=== PATIENT | female | born 1960 | race Caucasian/White ===

== ENCOUNTER 2017-12-31 11:21 | Inpatient (IN) | payer BC, OTHER ==
--- NOTE | 2017-12-29 22:48 | NUR ---
Usman reassess Patient verbalized relief from heartburn. Addendum: 01/01/18 at 0002 by VERÓNICA MAHARAJ RN Actual date should be: 12/31/17
[~2017-12-31] VITALS: Ht 163.8 cm; Wt 80.7 kg
--- NOTE | 2017-12-31 11:50 | NUR ---
Pre-Assessment Patient is a 57 yr old female who has presented to [facility] today for a medically supervised withdrawal from Benzodiazepines ( Lorazepam) She states she takes 3-4 mg PO Lorazepam as prescribed ( But family friend states you probably want to double what she says )for the past 6 years. She also takes, according to family friend vast quantities of Nyquil, Benadryl and OTC sleep aids She states she would like to wean off Effexor XR which she takes 150mg PO + 37.5mg -( Minus) 35 grains She also wants to wean off Lamictal 25mg PO 4x day She also takes Trazodone 25mg PO HS Claritin 10mg PO daily Zantac 150mg PO daily Levothyroxine 100mcg/dy Estradiol patch / 1 patch twice/week Progesterone 100mg PO HS Valsartan 80mg PO daily VS = BP 125/77, HR 98, RR 18, O2 SATS 94%, 0/10 pain. She is full code, allergy to Levoquin, regular diet Home medications brought to unit, contraband sent to Pharmacy per protocol Will continue assessment when patient arrives on floor. Room 329
[2017-12-31] MEDS ORDERED: ESTR1PAT7 TP (13:12)
[2017-12-31] MEDS ORDERED: IBUP-1627 PO (13:13)
[2017-12-31] MEDS ORDERED: ASPI1TAB2 PO (13:14)
[2017-12-31] MEDS ORDERED: VALS160T2 PO (13:15)
[2017-12-31] MEDS ORDERED: VENL37.591 PO (13:15)
[2017-12-31] MEDS ORDERED: TRAZ-182 PO (13:16)
[2017-12-31] MEDS ORDERED: LEVO100T10 PO (13:19)
[2017-12-31] MEDS ORDERED: DIPH25CA83 PO (13:20)
[2017-12-31] MEDS ORDERED: PROG100C15 PO (13:22)
[2017-12-31] MEDS ORDERED: DEXT15DR6 OP (13:24)
[2017-12-31] MEDS ORDERED: LAMO25TA PO (13:27)
[2017-12-31] MEDS ORDERED: [UNRECOGNIZED DRUG - OTHER] EACHEYE PRN (14:15)
[2017-12-31] MEDS ORDERED: ARTIFICIAL TEARS EACHEYE PRN (14:15)
[2017-12-31] MEDS ORDERED: MAGNESIUM HYDROXIDE 30 ML LIQUID UDC PO PRN (14:45)
[2017-12-31] MEDS ORDERED: DIAZEPAM 10 MG TABLET PO PRN ×2 (14:45)
[2017-12-31] MEDS ORDERED: LOPERAMIDE HCL 2 MG CAPSULE PO PRN ×2 (14:45)
[2017-12-31] MEDS ORDERED: ONDANSETRON ODT 4 MG TAB.RAPDIS SL PRN (14:45)
[2017-12-31] MEDS ORDERED: ONDANSETRON 4 MG/2 ML VIAL IM PRN (14:45)
[2017-12-31] MEDS ORDERED: ACETAMINOPHEN 325 MG TABLET PO PRN (14:45)
[2017-12-31] MEDS ORDERED: LORAZEPAM 2 MG/1 ML VIAL IM PRN (14:45)
[2017-12-31] MEDS ORDERED: THIAMINE HCL 200 MG/2 ML VIAL IM ONE (14:45)
[2017-12-31] MEDS ORDERED: diphenhydrAMINE 50 MG CAPSULE PO PRN (14:45)
[2017-12-31] MEDS ORDERED: MAG HYDROX/AL HYDROX/SIMETH 30 ML LIQUID UDC PO PRN (14:45)
[2017-12-31] MEDS ORDERED: DIAZEPAM 5 MG TABLET PO PRN (14:45)
[2017-12-31] MEDS ORDERED: 5 DAY TAPER VALIUM-SERENITY PROTOCOL PO PRN (14:45)
[2017-12-31 15:22] LABS: *AMPHETAMINE, URINE NEGATIVE (NEGATIVE); *BARBITURATE, URINE NEGATIVE (NEGATIVE); *CANNABINOID, URINE NEGATIVE (NEGATIVE); *COCCAINE, URINE NEGATIVE (NEGATIVE); *OPIATE, URINE NEGATIVE (NEGATIVE); *PHENCYCLIDINE SCREEN,URINE NEGATIVE (NEGATIVE)
[2017-12-31 16:00] VITALS: BP 128/74
[2017-12-31 16:01] LABS: BASOPHILS # (AUTO) 0.1 K/uL (0.0-8.0); BASOPHILS % (AUTO) 0.9 % (0.0-2.0); EOSINOPHILS # (AUTO) 0.3 K/uL (0.0-0.7); EOSINOPHILS % (AUTO) 3.9 % (0.0-7.0); HEMATOCRIT 43.2 % (31.2-41.9); HEMOGLOBIN 14.8 g/dL (10.9-14.3); LYMPHOCYTES # (AUTO) 2.3 K/uL (20.0-40.0); LYMPHOCYTES % (AUTO) 28.9 % (20.5-51.5); MEAN CORPUSCULAR HEMOGLOBIN 32.3 uug (24.7-32.8); MEAN CORPUSCULAR HGB CONC 34 g/dL (32.3-35.6); MEAN CORPUSCULAR VOLUME 94.3 fL (75.5-95.3); MONOCYTES # (AUTO) 0.6 K/uL (2.0-10.0); MONOCYTES % (AUTO) 7.7 % (0.0-11.0); NEUTROPHILS # (AUTO) 4.7 K/uL (1.8-8.9); NEUTROPHILS % (AUTO) 58.6 % (38.5-71.5); PLATELET COUNT (AUTO) 252 K/uL (179-408); RED BLOOD CELL COUNT(AUTO) 4.58 MIL/uL (3.63-4.92); WHITE BLOOD COUNT (AUTO) 8.1 K/uL (3.8-11.8)
[2017-12-31 16:16] LABS: ALANINE AMINOTRANSFERASE 24 U/L (14-59); ALKALINE PHOSPHATASE 73 U/L (50-136); ASPARTATE AMINOTRANSFERASE 15 U/L (15-37); BILIRUBIN,TOTAL 0.2 mg/dL (0.2-1.0); CARBON DIOXIDE 29 mmol/L (21-32); CHLORIDE 101 mmol/L (98-107); CREATININE 0.8 mg/dL (0.6-1.3); GLUCOSE 91 mg/dL (74-106); MAGNESIUM 1.9 mg/dL (1.8-2.4); POTASSIUM 4.3 mmol/L (3.5-5.1); TOTAL PROTEIN, SERUM 6.7 g/dL (6.4-8.2); UREA NITROGEN, BLOOD 21 mg/dL (7-18)
[2017-12-31 16:17] LABS: ETHANOL < 3 MG/DL (0-0)
[2017-12-31 16:52] LABS: THYROID STIMULATING HORMONE 1.077 mIU/mL (0.358-3.740)
[2017-12-31] MEDS ORDERED: TRAZODONE 50 MG TABLET PO SCH ×2 (18:00→21:00)
[2017-12-31] MEDS: HYDROXYZINE PAMOATE 25 MG CAPSULE PO PRN (18:05)
[2017-12-31] MEDS: CLONIDINE HCL 0.1 MG TABLET PO PRN (18:08)
--- NOTE | 2017-12-31 18:08 | NUR ---
PRN Vistaril 50mg PO and Clonidine 0.1mg PO given for s/s withdrawal and agitation
[2017-12-31] MEDS: PSYLLIUM SEED PACKET PO SCH ×2 (18:09→18:16)
[2017-12-31] MEDS ORDERED: HOME MED MISCELLANEOUS OP PRN (18:15)
[2017-12-31] MEDS ORDERED: HOME MED MISCELLANEOUS TP SCH (18:15)
[2017-12-31] MEDS ORDERED: HOME MED MISCELLANEOUS TP PRN ×2 (18:15)
[2017-12-31] MEDS ORDERED: HOME MED MISCELLANEOUS RC SCH (18:15)
[2017-12-31] MEDS ORDERED: diphenhydrAMINE/ZINC ACET CREAM 28 GM TUBE TOP PRN (18:15)
[2017-12-31] MEDS ORDERED: SHARK LIVER OIL/PETROLAT OINT 60 GM TUBE RC PRN (18:15)
[2017-12-31] MEDS ORDERED: NICO2GUM9 BC (18:57)
[2017-12-31] MEDS ORDERED: [UNRECOGNIZED DRUG - CODE] MM (18:57)
[2017-12-31] MEDS ORDERED: CALC500T13 PO (18:57)
[2017-12-31] MEDS ORDERED: RANI150T43 PO (18:57)
[2017-12-31] MEDS ORDERED: IBUP-23 PO (18:57)
--- NOTE | 2017-12-31 19:08 | NUR ---
PRN Reassess patient states medications have helped ease her anxiety
--- NOTE | 2017-12-31 19:09 | NUR ---
Admission Note Patient is a 57 yr old female who was admitted today 12/31/17 @ 1323 for a medically supervised withdrawal from Benzodiazepines. She is alert and oriented x4, steady gait and is accompanied by her friend. Patient is able to answer all questions appropriately regarding past medical history. Substance Abuse History: Lorazepam 4-8mg PO daily for past 6 years, last consumed 3mg PO @ 0930 12/31/17 Patient states she first took Lorazepam in 1990 for about 1 year and stopped and then did not start to take it again until about 6 years ago ( approx 2011). Medical History: Chronic Anxiety- PTSD - diagnosed 2011 ( was prescribed Lorazepam) Depression diagnosed in was prescribed Effexor in 1998 Lamictal 100mg PO daily for bipolar 2 disorder Hypothyroid- was prescribed Synthroid in 1997 Insomnia- was prescribed Trazodone in 2014 Menopuase was prescribed Estradiol and progesterone 7 months ago HTN- Valsartan was prescribed in 2015 Surgical History: Gestational Trophoblastic Disease invasive chorio adenoma Partial Colonectomy in 2014 Hernia 2015 Shattered shoulder and broken arm in [address] Horacio Masters : [phone] Allen Squires : [phone] Sumi Gregorio : [phone] When asked why she has come to [facility] today she replies I have had so many shocks this year, My Mother is not well, my is cheating on me and has destroyed our 30 year marriage, my son is upset and does not know how to deal with all this turmoil , my anxiety medication has stopped working for me and I dont want to keep taking morenothing is working, I have panic attacks, my teeth chatter and I have racing thoughts all the time, I am up and down emotionally and I need help now. Patient states she lives with her son and nephew , her friends Madelin and Yury who brought her here today are her support system. Per friends report she gets very paranoid and can be very domineering and has volatile mood swings. Weight is 178 lbs, height 54.5, no SOB, Lung sounds clear bilaterally, Positive Bowel sounds, Full Code
[2017-12-31] MEDS ORDERED: [UNRECOGNIZED DRUG - OTHER] RC PRN (19:15)
[2017-12-31] MEDS ORDERED: DESITIN OINTMENT TOP PRN (19:30)
[2017-12-31] MEDS ORDERED: CORTIZONE TOP PRN (19:30)
[2017-12-31] MEDS ORDERED: [UNRECOGNIZED DRUG - OTHER] EACHEYE PRN (19:30)
[2017-12-31] MEDS ORDERED: TIGER BALM TOP PRN (19:30)
--- NOTE | 2017-12-31 19:39 | NUR ---
End Of Shift Patient is a 57 yr old female who was admitted to [facility] 12/31/17 for a medically supervised withdrawal from Benzodiazepines. She has started on a 5 day Valium taper. patient has been emotionally volatile since admission on the floor this afternoon. PRN Valium 20mg PO, Clonidine and Vistaril 50mg Po were given. She had a fluid intake of 1300ML and 5 voids, her last CIWA was 17 @ 1730. Continue to follow MD plan of care, endorsed to power and recovery shift engineer.
[2017-12-31 20:00] VITALS: BP 123/83
--- NOTE | 2017-12-31 20:00 | NUR ---
START OF SHIFT Received patient awake, alert, and oriented x4. Per endorsement, patient is admitted today 12/31/2017 for Ativan detox. She has a Levaquin allergy. It is noted that patient is emotionally labile with manic and depressive episodes and switching between hostile and apologetic moods. Upon assessment, patient was cordial, anxious, and exhibited low energy levels. No complaints of pain at this time. CIWA is 13 at 2000. Will continue to monitor.
[2017-12-31] MEDS: QUETIAPINE FUMARATE 25 MG TABLET PO SCH (20:54)
[2017-12-31] MEDS ORDERED: DIAZEPAM 10 MG TABLET PO SCH (21:00)
[2017-12-31] MEDS: PROGESTERONE 100 MG PO SCH (21:06)
[2017-12-31] MEDS: [UNRECOGNIZED DRUG - OTHER] PO SCH (21:06)
[2017-12-31] MEDS: FAMOTIDINE 20 MG TABLET PO PRN (21:47)
--- NOTE | 2017-12-31 21:47 | NUR ---
PRN Pepcid Patient c/o heartburn. Administered Pepcid 20 mg PO. Will reassess.
--- NOTE | 2017-12-31 22:47 | NUR ---
Pepcid reassess Patient verbalized relief from heartburn.
[2018-01-01] VITALS: BP 99/55
--- NOTE | 2018-01-01 | NUR ---
CIWA=11 Patient continues to be anxious but appears less tense. Patient noted with tremors and is depressed and isolative.
[2018-01-01 04:00] VITALS: BP 102/60
--- NOTE | 2018-01-01 04:00 | NUR ---
CIWA=10 Patient continues to be restless and fidgety and appears less anxious. Patient is noted being tremulous and withdrawn. Will continue to monitor.
[2018-01-01] MEDS: LEVOTHYROXINE SODIUM 100 MCG TABLET PO SCH (06:13)
--- NOTE | 2018-01-01 07:14 | NUR ---
END OF SHIFT Patient is noted lying in bed with eyes closed and with even and unlabored respirations. Patient reported some agitation and restlessness. Last CIWA score is 10. Patient slept for 7 hours during the shift. Patient verbalized that she was able to get good sleep last night and was grateful for the care we were able to render for her. Endorsed to oncoming AM nurse.
[2018-01-01 08:00] VITALS: BP 126/80
--- NOTE | 2018-01-01 08:00 | NUR ---
Start of Shift Notes/CIWA Assessment: Received report from night nurse. Patient is a 57 year old female admitted for BZO withdrawal who was placed on a 5-day Valium taper as ordered. Per night report, patient was not given any PRNs. Last CIWA 10. Slept for 8 hours. Received patient in the hallway. She is noted with arms crossed. Appears flushed, worried facial expression, anxious and agitated. She verbalizes that she wants Valium now. Educated patient on her medication regimen and the time it is supposed to be given. CIWA 15. Gross tremors noted to BUE and diaphoretic. Denies S/I or H/I noted. No AV hallucinations noted. Educated patient on her current plan of care for the day. Encouraged group participation to learn new skills to prevent relapse. All needs met and attended. Will continue to monitor closely.
[2018-01-01] MEDS: VALSARTAN 160 MG TABLET PO SCH (08:42)
[2018-01-01] MEDS: DIAZEPAM 10 MG TABLET PO SCH ×3 (08:42→21:32)
[2018-01-01] MEDS: MULTIVITAMINS,THERAPEUTIC TABLET PO SCH (08:42)
[2018-01-01] MEDS: VENLAFAXINE XR 150 MG CAP.SR.24H PO SCH (08:42)
[2018-01-01] MEDS: FOLIC ACID 1 MG TABLET PO SCH (08:42)
[2018-01-01] MEDS: THIAMINE HCL 100 MG TABLET PO SCH (08:42)
[2018-01-01] MEDS: LAMOTRIGINE 25 MG TABLET PO SCH (08:42)
[2018-01-01] MEDS ORDERED: PSYLLIUM SEED PACKET PO SCH (09:00)
[2018-01-01] MEDS ORDERED: ESTRADIOL TOP SCH (09:00)
[2018-01-01] MEDS ORDERED: TUBERCULIN,PURIF.PROT.DERIV. 5 TU/0.1 ML TEST ID ONE (09:00)
[2018-01-01] MEDS ORDERED: [UNRECOGNIZED DRUG - OTHER] TOP SCH (09:00)
[2018-01-01] MEDS ORDERED: CALCIUM CARBONATE 500 MG TAB.CHEW PO PRN (10:30)
[2018-01-01 12:00] VITALS: BP 126/69
--- NOTE | 2018-01-01 12:30 | NUR ---
CIWA Assessment: CIWA 14, patient continues to present with facial flushing, gross tremors, nervousness, abdominal spasms, vivid dreams, increased emotional amplitude and agitation. Will medicate patient as ordered. Support provided.
[2018-01-01] MEDS: DICYCLOMINE HCL 10 MG CAPSULE PO PRN ×2 (14:40→22:05)
--- NOTE | 2018-01-01 14:40 | NUR ---
Bentyl 10 mg PO given: Patient noted with complain of abdominal cramping. No diarrhea. No constipation noted. Medicated patient with Bentyl 10 mg PO as ordered. WIll monitor for effectiveness.
[2018-01-01 16:00] VITALS: BP 122/80
--- NOTE | 2018-01-01 16:19 | NUR ---
CIWA Assessment: CIWA 14, patient continues to present with s/s of withdrawal related to BZO m/b: facial flushing, gross tremors, nervousness, abdominal spasms, vivid dreams, increased emotional amplitude, generalized discomfort, fatigue, malaise and agitation. Will medicate patient as ordered. Support provided.
--- NOTE | 2018-01-01 19:02 | NUR ---
End of Shift Notes: Patient continues to be on 5-day Valium as ordered to manage symptoms related to BZO withdrawal. VS monitored closely. No significant abnormalities noted. Withdrawal symptoms were closely monitored. Initial CIWA 15, patient presented with anxiety, agitation, vivid dreams, abdominal cramping, increased emotional amplitude, gross tremors, diaphoresis, facial flushing, hot and cold sweats and generalized discomfort. Medicated patient with Bentyl at 1440 for abdominal cramping with help. Last CIWA 12. Patient verbalizes that Valium has been effective in reducing her withdrawal symptoms. Participated in group and activities during the day. All needs met and attended. Will continue to monitor closely.
--- NOTE | 2018-01-01 19:13 | NUR ---
START OF SHIFT Patient is a 57-year-old female admitted on 12/31/17 for benzodiazepine withdrawal. Patient is currently on a 5-day Valium taper, tolerating well; today is day 2 of taper. Patients last CIWA was 12 per endorsement. Patient received PRN Bentyl for abdominal spasms, noted to be effective. Upon assessment, patient appears anxious and preoccupied with thoughts. Patient is talkative and jumps from topic to topic. Patient complains of general discomfort related to aging stating, this is what you have to look forward to in regards to taking routine Metamucil. Patient is on fall and seizure precautions with no history of seizure. Safety measures in place, side rails up x2, bed locked in low position, call light within reach. Will continue to monitor.
[2018-01-01] MEDS: PSYLLIUM SEED PACKET PO SCH ×2 (19:45→21:00)
[2018-01-01 20:00] VITALS: BP 150/96
--- NOTE | 2018-01-01 20:00 | NUR ---
CIWA 12 Patient reports feeling anxious and restless; patient is diaphoretic and mildly flushed. Patient complains of intermittent stomach cramps and fine hand tremors can be observed bilaterally. Patient is tearful at times when expressing her thoughts and feelings regarding her current situation. Current CIWA is 12. SN to administer meds as ordered. Will continue to monitor.
[2018-01-01] MEDS: [UNRECOGNIZED DRUG - OTHER] PO SCH (21:32)
[2018-01-01] MEDS: QUETIAPINE FUMARATE 25 MG TABLET PO SCH (21:32)
[2018-01-01] MEDS: PROGESTERONE 100 MG PO SCH (21:32)
--- NOTE | 2018-01-01 22:05 | NUR ---
PRN AVERY Patient reports abdominal spasms and states, "it's weird, I didn't think that I would be getting stomachaches." PRN Avery given PO. Safety measures in place, side rails up x2, bed locked in low position, call light within reach. Will monitor for effectiveness.
--- NOTE | 2018-01-01 23:05 | NUR ---
PRN BENTYL REASSESSMENT Patient reports abdominal cramping has improved. PRN Bentyl noted to be effective. Safety measures in place, side rails up x2, bed locked in low position, call light within reach. Will continue to monitor.
[2018-01-02] VITALS: BP 118/78
--- NOTE | 2018-01-02 | NUR ---
CIWA DEFERRED CIWA deferred due to patient sleeping; to be assessed and scored while patient is awake. Respirations even and unlabored, safety measures in place, side rails up x2, bed locked in low position, call light within reach. Will continue to monitor.
--- NOTE | 2018-01-02 00:42 | NUR ---
CIWA 9 Patient is awake and requesting some Zantac for heartburn. Patient is anxious and sleepy, slightly restless, a little flushed and diaphoretic, fine tremors noted. Current CIWA is 9. SN to administer PRNs as order. Will continue to monitor.
[2018-01-02] MEDS: FAMOTIDINE 20 MG TABLET PO PRN ×2 (00:47→19:58)
--- NOTE | 2018-01-02 00:47 | NUR ---
PRN PEPCID Patient reports, "I probably ate too much candy" and states that she has acid reflux. Patient states, "I usually take Zantac every night." PRN Pepcid given PO. Safety measures in place, side rails up x2, bed locked in low position, call light within reach. Will monitor for effectiveness.
--- NOTE | 2018-01-02 01:47 | NUR ---
PRN PEPCID REASSESSMENT Patient is observed sleeping in bed with eyes closed, respirations even and unlabored. Unable to reassess PRN Pepcid at this time. Safety measures in place, side rails up x2, bed locked in low position, call light within reach. Will continue to monitor.
--- NOTE | 2018-01-02 03:30 | NUR ---
CIWA 11 Patient reports waking up due to "I was hearing something and it made me wake up." Patient is diaphoretic, anxious, a little frightened, and slightly tremulous. Current CIWA 11. Patient asked SN to stay in the room while patient used the restroom. Patient also requested a cup of ice. Safety measures in place, side rails up x2, bed locked in low position, call light within reach. Will continue to monitor.
[2018-01-02 04:00] VITALS: BP 106/64
--- NOTE | 2018-01-02 07:13 | NUR ---
END OF SHIFT Patient is a 57-year-old female admitted on 12/31/17 for benzodiazepine withdrawal. Patient is currently on a 5-day Valium taper, tolerating well; today will be the third day of the taper. Patients last CIWA was 11. Patient received PRN Bentyl for abdominal spasms and PRN Pepcid for heartburn. Patient slept for 7 hours, total intake 1,680mL, void x2, stool x0. Unable to give 0700 levothyroxine due to med unavailable in the patients cassette. Patient is on fall and seizure precautions with no history of seizure. Safety measures in place, side rails up x2, bed locked in low position, call light within reach. Will endorse to day shift.
[2018-01-02 07:46] LABS: BASOPHILS # (AUTO) 0.1 K/uL (0.0-8.0); BASOPHILS % (AUTO) 0.9 % (0.0-2.0); EOSINOPHILS # (AUTO) 0.5 K/uL (0.0-0.7); EOSINOPHILS % (AUTO) 7.8 % (0.0-7.0); HEMATOCRIT 43.5 % (31.2-41.9); HEMOGLOBIN 14.9 g/dL (10.9-14.3); LYMPHOCYTES # (AUTO) 2.4 K/uL (20.0-40.0); MEAN CORPUSCULAR HEMOGLOBIN 32.5 uug (24.7-32.8); MEAN CORPUSCULAR HGB CONC 34 g/dL (32.3-35.6); MEAN CORPUSCULAR VOLUME 94.9 fL (75.5-95.3); MONOCYTES # (AUTO) 0.6 K/uL (2.0-10.0); MONOCYTES % (AUTO) 8.1 % (0.0-11.0); NEUTROPHILS # (AUTO) 3.4 K/uL (1.8-8.9); NEUTROPHILS % (AUTO) 49.2 % (38.5-71.5); PLATELET COUNT (AUTO) 247 K/uL (179-408); RED BLOOD CELL COUNT(AUTO) 4.59 MIL/uL (3.63-4.92)
[2018-01-02 07:58] LABS: CREATININE 0.7 mg/dL (0.6-1.3); POTASSIUM 4.2 mmol/L (3.5-5.1)
[2018-01-02 08:00] VITALS: BP 144/98
--- NOTE | 2018-01-02 08:00 | NUR ---
Start of Shift Notes/CIWA Assessment: Received report from night nurse. Patient is a 57 year old female admitted for BZO withdrawal who was placed on a 5-day Valium taper as ordered. Per night report, patient was given PRN Bentyl and Pepcid. Last CIWA 11. Slept for 7 hours. Received patient in the hallway. Alert and oriented x 4. Denies S/I or H/I noted. No AV hallucinations noted. Appears flushed, worried facial expression, anxious and agitated. Repeating questions that were already answered. CIWA 15. Gross tremors noted to BUE and diaphoretic. Educated patient on her current plan of care for the day. Encouraged group participation to learn new skills to prevent relapse. All needs met and attended. Will continue to monitor closely.
[2018-01-02] MEDS: LEVOTHYROXINE SODIUM 100 MCG TABLET PO SCH (08:56)
[2018-01-02] MEDS: VALSARTAN 160 MG TABLET PO SCH (08:57)
[2018-01-02] MEDS: VENLAFAXINE XR 150 MG CAP.SR.24H PO SCH (08:57)
[2018-01-02] MEDS: THIAMINE HCL 100 MG TABLET PO SCH (08:58)
[2018-01-02] MEDS: DIAZEPAM 5 MG TABLET PO SCH ×4 (08:58→22:55)
[2018-01-02] MEDS: FOLIC ACID 1 MG TABLET PO SCH (08:58)
[2018-01-02] MEDS: MULTIVITAMINS,THERAPEUTIC TABLET PO SCH (08:58)
[2018-01-02] MEDS: LAMOTRIGINE 25 MG TABLET PO SCH (09:03)
[2018-01-02 10:11] LABS: HEPATITIS B SURFACE AG Negative (Negative)
[2018-01-02 12:00] VITALS: BP 125/88
--- NOTE | 2018-01-02 12:30 | NUR ---
CIWA Assessment: CIWA 13, patient continues to present with facial flushing, gross tremors, nervousness, headache, abdominal spasms, diaphoresis, increased emotional amplitude and agitation. Will medicate patient as ordered. Support provided.
[2018-01-02] MEDS: IBUPROFEN 600 MG TABLET PO PRN (14:01)
--- NOTE | 2018-01-02 14:01 | NUR ---
Motrin 600 mg PO given: Patient complains of 6/10 headache related to BZO withdrawal. Non-pharmacological interventions provided but ineffective. Medicated patient with Motrin 600 mg PO as ordered. Will monitor for effectiveness.
--- NOTE | 2018-01-02 14:16 | NUR ---
Therapist prompted client to attend group therapy sessions and client agreed to do so.
--- NOTE | 2018-01-02 15:01 | NUR ---
Re-assessment: Motrin Patient verbalizes relief from headache and reports pain level is now a 2 out of 10. PRN Motrin effective.
[2018-01-02 16:00] VITALS: BP 128/75
--- NOTE | 2018-01-02 16:30 | NUR ---
CIWA Assessment: CIWA 13, patient continues to present with facial flushing, gross tremors, nervousness, headache, diaphoresis, increased emotional amplitude and agitation. Will medicate patient as ordered. Support provided.
--- NOTE | 2018-01-02 19:08 | NUR ---
End of Shift Notes: Patient continues to be on 5-day Valium as ordered to manage symptoms related to BZO withdrawal. VS monitored closely. No significant abnormalities noted. Withdrawal symptoms were closely monitored. Initial CIWA 15, patient presented with anxiety, agitation, vivid dreams, abdominal cramping, increased emotional amplitude, gross tremors, diaphoresis, facial flushing, hot and cold sweats and generalized discomfort. Medicated patient with Motrin 600 mg PO at 1401 with help. . Last CIWA 13. Patient verbalizes that Valium has been effective in reducing her withdrawal symptoms. Participated in group and activities during the day. All needs met and attended. Will continue to monitor closely.
--- NOTE | 2018-01-02 19:40 | NUR ---
START OF SHIFT Patient is a 57-year-old female admitted on 12/31/17 for benzodiazepine withdrawal. Patient is currently on a 5-day Valium taper, tolerating well; today is day 3 of the taper. Patients last CIWA was 13 per endorsement. Patient received PRN Motrin for headache today, noted to be effective. Upon assessment, patient appears anxious and tearful, stating that hearing other peoples stories during group had made her emotional. Patient reports feeling bloated and that she is still experiencing stomach cramping. Patient is concerned about being able to sleep tonight. Patient is on fall and seizure precautions with no history of seizure. Safety measures in place, side rails up x2, bed locked in low position, call light within reach. Will continue to monitor.
[2018-01-02] MEDS: DICYCLOMINE HCL 10 MG CAPSULE PO PRN (19:57)
--- NOTE | 2018-01-02 19:58 | NUR ---
PRN BENTYL & PEPCID Patient complains of abdominal spasms/cramping and heartburn. PRN Bentyl and Pepcid given PO. Safety measures in place, side rails up x2, bed locked in low position, call light within reach. Will monitor for effectiveness.
[2018-01-02 20:00] VITALS: BP 169/95
--- NOTE | 2018-01-02 20:00 | NUR ---
CIWA 14 Patient is anxious, emotionally labile, worried and restless. Patient is diaphoretic, fine tremors noted, and has elevated BP and HR. Current CIWA is 14. SN to administer meds as ordered. Safety measures in place, call light within reach. Will continue to monitor.
[2018-01-02] MEDS: CLONIDINE HCL 0.1 MG TABLET PO PRN (20:05)
--- NOTE | 2018-01-02 20:05 | NUR ---
PRN CLONIDINE Patient has a BP of 160/104 and HR of 94. When rechecked, BP was 169/95. PRN Clonidine 0.1mg was given PO for elevated BP as well as anxiety and agitation. Safety measures in place, call light within reach. Will monitor for effectiveness.
--- NOTE | 2018-01-02 20:58 | NUR ---
PRN BENTYL & PEPCID REASSESSMENT Patient reports improvement in abdominal cramping and heartburn. PRN Bentyl and PRN Pepcid noted to be effective. Safety measures in place, side rails up x2, bed locked in low position, call light within reach. Will continue to monitor.
--- NOTE | 2018-01-02 21:05 | NUR ---
PRN CLONIDINE REASSESSMENT Patient has a BP of 152/90 and HR of 88. PRN Clonidine was somewhat effective in lowering patient's BP. Patient is visibly less anxious and restless at this time. Safety measures in place, bed locked in low position, side rails up x2, call light within reach. Will continue to monitor.
[2018-01-02] MEDS: [UNRECOGNIZED DRUG - OTHER] PO SCH (21:31)
[2018-01-02] MEDS: PSYLLIUM SEED PACKET PO SCH (21:31)
[2018-01-02] MEDS: PROGESTERONE 100 MG PO SCH (21:31)
[2018-01-02] MEDS: QUETIAPINE FUMARATE 25 MG TABLET PO SCH (22:55)
[2018-01-03] VITALS: BP 118/78
--- NOTE | 2018-01-03 | NUR ---
CIWA 12 Patient reports anxiety, agitation, restlessness and difficulty sleeping. Patient is diaphoretic with fine hand tremors. Current CIWA is 12. SN to administer meds as ordered. Will continue to monitor.
[2018-01-03] MEDS: HYDROXYZINE PAMOATE 25 MG CAPSULE PO PRN ×2 (02:07→17:01)
--- NOTE | 2018-01-03 02:07 | NUR ---
PRN VISTARIL Patient reports anxiety and difficulty sleeping. PRN Vistaril given PO. Safety measures in place, call light within reach. Will monitor for effectiveness.
[2018-01-03] MEDS ORDERED: BENZOCAINE/MENTH/CETYLPYRD LOZENGE MM PRN (02:15)
--- NOTE | 2018-01-03 02:35 | NUR ---
PRN CEPACOL Patient reports "I have a sore throat" and is requesting a lozenge. PRN Cepacol given to patient PO. Safety measures in place, call light within reach. Will monitor for effectiveness.
--- NOTE | 2018-01-03 03:07 | NUR ---
PRN VISTARIL REASSESSMENT Patient observed sleeping in bed with eyes closed, respirations even and unlabored; unable to reassess at this time. Safety measures in place, side rails up x2, bed locked in low position, call light within reach. Will continue to monitor.
--- NOTE | 2018-01-03 04:00 | NUR ---
CIWA DEFERRED, VITALS REFUSED Patient refused 0400 vitals due to not being able to fall asleep before 0200. Patient's CIWA deferred at this time due to patient sleeping; to be assessed while patient is awake. Respirations even and unlabored 14/min. Safety measures in place, side rails up x2, bed locked in low position, call light within reach. Will continue to monitor.
--- NOTE | 2018-01-03 07:25 | NUR ---
END OF SHIFT Patient is a 57-year-old female admitted on 12/31/17 for benzodiazepine withdrawal. Patient is currently on a 5-day Valium taper, tolerating well; today will be 4th day of the taper. Patients last CIWA was 12. Patient received the following PRNs: Bentyl, Clonidine, Pepcid, Vistaril, and Cepacol. PRNs noted to be effective. Patient slept for 5 hours, total intake of 1,455mL, void x5, stool x1. Patient is on fall and seizure precautions with no history of seizure. Safety measures in place, side rails up x2, bed locked in low position, call light within reach. Will endorse to day shift.
--- NOTE | 2018-01-03 07:35 | NUR ---
START OF SHIFT Pt is a 57 yr old female, AA&Ox4. Pt was admitted on 12/31/17 for Benzo withdrawal and is on 5 day Valium taper as ordered. Received report from service writer nurse. Pt received Bentyl PRN, Pepcid PRN, Clonidine PRN, Vistaril PRN and Cepacol PRN during the night. Pt slept for 5 hrs. Last CIWA score was 12. Pt is currently in bed sleeping with respirations even and unlabored. Pt was refusing to take Levothyroxine as scheduled at 0700 stating, "Stop waking me up, I just want to sleep. Come back later". Pt continued to lay in bed, covering herself with the blankets over her head. Safety precautions observed. Call light is within reach. Will continue to monitor.
[2018-01-03 08:00] VITALS: BP 146/85
[2018-01-03] MEDS: LEVOTHYROXINE SODIUM 100 MCG TABLET PO SCH (08:03)
--- NOTE | 2018-01-03 09:00 | NUR ---
CIWA ASSESSMENT Pt was c/o anxiety, agitation, abdominal cramping, fatigue, sweats and chills. Pt is observed with flat affect. CIWA score was 11. Pt was encourage increase fluid intake for hydration. Will continue to monitor.
[2018-01-03] MEDS: MULTIVITAMINS,THERAPEUTIC TABLET PO SCH (09:23)
[2018-01-03] MEDS: VENLAFAXINE XR 150 MG CAP.SR.24H PO SCH (09:23)
[2018-01-03] MEDS: PATIENT MAY USE OWN MED- MD OK TOP SCH (09:23)
[2018-01-03] MEDS: LAMOTRIGINE 25 MG TABLET PO SCH (09:23)
[2018-01-03] MEDS: VALSARTAN 160 MG TABLET PO SCH (09:23)
[2018-01-03] MEDS: THIAMINE HCL 100 MG TABLET PO SCH (09:24)
[2018-01-03] MEDS: DIAZEPAM 5 MG TABLET PO SCH ×3 (09:24→21:22)
[2018-01-03] MEDS: FOLIC ACID 1 MG TABLET PO SCH (09:24)
[2018-01-03 12:00] VITALS: BP 155/77
[2018-01-03] MEDS: IBUPROFEN 600 MG TABLET PO PRN ×2 (12:15→22:47)
--- NOTE | 2018-01-03 12:15 | NUR ---
PRN GIVEN Pt was c/o headache 08/15. Facial grimacing is observed. Pt is noted with anxiety, agitation and facial redness. CIWA score as 10. Motrin 600mg PO PRN was given as ordered. Encouraged increase fluid intake. Will continue to monitor.
[2018-01-03 12:48] LABS: BILIRUBIN,TOTAL 0.2 mg/dL (0.2-1.0); POTASSIUM 4.5 mmol/L (3.5-5.1); TOTAL PROTEIN, SERUM 6.6 g/dL (6.4-8.2)
--- NOTE | 2018-01-03 13:15 | NUR ---
PRN RE-ASSESSMENT Motrin PRN was effective. Pt denies any headache at this time. Will continue to monitor
--- NOTE | 2018-01-03 13:58 | NUR ---
Therapist prompted client to attend all group therapy sessions.
[2018-01-03 16:00] VITALS: BP 152/96
[2018-01-03] MEDS: CLONIDINE HCL 0.1 MG TABLET PO PRN (17:01)
--- NOTE | 2018-01-03 17:05 | NUR ---
PRN Clonidine and Vistaril Pt is anxious, restless, emotional, and tearful with facial flushing. B/P 152/96. CIWA 12. Provided support and encouragement. PRN Clonidine and Vistaril administered.
--- NOTE | 2018-01-03 19:15 | NUR ---
END OF SHIFT Pt is a 57 yr old female, AA&Ox4. Pt was admitted on 12/31/17 for Benzo withdrawal and is on 5 day Valium taper as ordered. Pt has been noted with emotional volatile and c/o increase anxiety, agitation, headache, sweats, chills and abdominal cramping. Pt received Clonidine 0.1mg PO PRN and Vistaril PRN as ordered. Medication was effective. Pt also received Motrin 600mg [place] PRN at 52018 for headache. Medication was effective. Pt was observed attending group. Encouraged increase fluid intake for hydration. Endorsed to hourly shift nurse to continue with care.
[2018-01-03 20:00] VITALS: BP 143/87
--- NOTE | 2018-01-03 20:00 | NUR ---
Start of Shift Patient c/o feeling anxious, is noted to have mood swings and is hyperverbal. Patient also verbalized that she feels "depressed" from "time to time". Patient explained her situation at home and stated that despite the issues, she is hopeful. Patient appears melancholic. Fall, universal, seizure and safety prec in place. Call light within reach. Latest CIWA=10. Will continue to monitor.
[2018-01-03] MEDS: PROGESTERONE 100 MG PO SCH (21:22)
[2018-01-03] MEDS: [UNRECOGNIZED DRUG - OTHER] PO SCH (21:22)
[2018-01-03] MEDS: QUETIAPINE FUMARATE 25 MG TABLET PO SCH (21:22)
[2018-01-03] MEDS: PSYLLIUM SEED PACKET PO SCH (21:23)
[2018-01-03] MEDS: FAMOTIDINE 20 MG TABLET PO PRN (22:47)
--- NOTE | 2018-01-03 22:47 | NUR ---
PRN Pepcid and Motrin Patient c/o heartburn and headache=09/14. Administered Pepcid 20 mg PO PRN and Motrin 600 mg PO PRN. Will reassess.
--- NOTE | 2018-01-03 23:45 | NUR ---
Pepcid and Motrin reassess Patient verbalized relief from heartburn and headache.
[2018-01-04] VITALS: BP 140/79
--- NOTE | 2018-01-04 | NUR ---
CIWA=9 Patient with intermittent anxiety and she continues to be melancholic and depressed.
[2018-01-04 04:00] VITALS: BP 142/85
--- NOTE | 2018-01-04 04:00 | NUR ---
CIWA=8 Patient verbalized having anxiety attacks. Patient continues to be melancholic and depressed. Patient with labile mood.
[2018-01-04] MEDS: LEVOTHYROXINE SODIUM 100 MCG TABLET PO SCH (06:54)
--- NOTE | 2018-01-04 07:21 | NUR ---
End of Shift Patient continues to be in depressed mood and is emotionally labile. Patient was noted to have mood swings during the shift. Patient verbalized that thinking about her personal issues makes her "sad". Patient was educated regarding coping mechanisms. Patient also c/o intermittent chills and hot flushes. PRN Pepcid and Motrin were administered within the shift for heartburn and headache. Latest CIWA=8, slept for 6 hours. Endorsed to AM shift nurse for continuity of care.
[2018-01-04 08:00] VITALS: BP 116/61
--- NOTE | 2018-01-04 08:00 | NUR ---
START OF SHIFT Pt is a 57 yr old female, AA&Ox4. Pt was admitted on 12/31/17 for Benzo withdrawal and is on 5 day Valium taper as ordered. Received report from hourly shift nurse. Pt received Pepcid PRN and Motrin PRN during the night. Pt slept for 6 hrs. Last CIWA score was 8. Pt is observed emotional volatile, anxious and agitated this morning pacing back and forth in the room. Pt is observed facial redness. Pt states, "I can't do this any more, I need to go home" Pt was redirected and spoken to about the importance of treatment. Pt agreed to stay and was apologetic. CIWA score this morning is 12. Safety precautions observed. Call light is within reach. Will continue to monitor.
[2018-01-04] MEDS ORDERED: DIAZEPAM 5 MG TABLET PO SCH (09:00)
[2018-01-04] MEDS: FOLIC ACID 1 MG TABLET PO SCH (09:40)
[2018-01-04] MEDS: THIAMINE HCL 100 MG TABLET PO SCH (09:40)
[2018-01-04] MEDS: MULTIVITAMINS,THERAPEUTIC TABLET PO SCH (09:40)
[2018-01-04] MEDS: VENLAFAXINE XR 150 MG CAP.SR.24H PO SCH (09:41)
[2018-01-04] MEDS: VALSARTAN 160 MG TABLET PO SCH (09:42)
[2018-01-04] MEDS: LAMOTRIGINE 25 MG TABLET PO SCH (09:42)
[2018-01-04 12:00] VITALS: BP 153/96
--- NOTE | 2018-01-04 12:00 | NUR ---
CIWA ASSESSMENT Pt is c/o anxiety, agitation, headache, sweats and chills. Pt is observed with facial redness. CIWA score was 10. encouraged increase fluid intake. will continue to monitor.
[2018-01-04] MEDS: IBUPROFEN 600 MG TABLET PO PRN (15:21)
--- NOTE | 2018-01-04 15:23 | NUR ---
PRN GIVEN Pt was c/o headache 08/15. Facial grimacing is observed. Motrin 600mg PO PRN was given as ordered. Encouraged increase fluid intake. Will continue to monitor.
[2018-01-04 16:00] VITALS: BP 146/87
[2018-01-04] MEDS ORDERED: 3 DAY TAPER OF VALIUM-SERENITY PROTOCOL PO PRN (16:00)
--- NOTE | 2018-01-04 16:30 | NUR ---
PRN RRE-ASSESSMENT Motrin PRN was effective. Pt states, "My headache is much better". Encouraged increase fluid intake. Will continue to monitor.
--- NOTE | 2018-01-04 16:39 | NUR ---
Therapist prompted client to attend group therapy.
[2018-01-04] MEDS: DIAZEPAM 5 MG TABLET PO SCH ×2 (17:06→20:45)
[2018-01-04] MEDS ORDERED: hydrALAZINE HCL 10 MG TABLET PO PRN (17:45)
--- NOTE | 2018-01-04 19:08 | NUR ---
END OF SHIFT Pt is a 57 yr old female, AA&Ox4. Pt was admitted on 12/31/17 for Benzo withdrawal and is on an extended Valium taper as ordered. Pt has been cooperative with medication regimen. Pt was observed attending group therapy. Pt was c/o increase anxiety, agitation, headache, sweats, chills and restlessness. Pt was observed fidgety, emotional volatile and facial redness. Pt received Motrin PRN at 1521 for headache. Medication was effective. Last CIWA score was 9 at 1702. Encouraged increase fluid intake for hydration. Endorsed to overnight stocker nurse to continue with care.
[2018-01-04 20:00] VITALS: BP 145/83
--- NOTE | 2018-01-04 20:00 | NUR ---
Start of Shift Patient c/o feeling anxious, has mood swings and speaks with a soft voice. She verbalized that everyday she is getting better, even though she is still noted to be melancholic. Patient continues to have tremors but per patient, they have been getting better . Fall, universal, seizure and safety prec in place. Call light within reach. Latest CIWA=10. Will continue to monitor.
[2018-01-04] MEDS: QUETIAPINE FUMARATE 25 MG TABLET PO SCH (20:45)
[2018-01-04] MEDS: PROGESTERONE 100 MG PO SCH (20:45)
[2018-01-04] MEDS: [UNRECOGNIZED DRUG - OTHER] PO SCH (20:45)
[2018-01-04] MEDS: PSYLLIUM SEED PACKET PO SCH (20:45)
[2018-01-05] VITALS (7 sets, daily range): BP systolic 129–168; BP diastolic 1–111
--- NOTE | 2018-01-05 | NUR ---
CIWA=9 Patient continues to have mood swings, anxiety and she continues to be melancholic and depressed.
[2018-01-05] MEDS: FAMOTIDINE 20 MG TABLET PO PRN ×2 (00:10→23:39)
--- NOTE | 2018-01-05 00:11 | NUR ---
PRN Pepcid Patient c/o heartburn. Administered Pepcid 20 mg PO PRN. Will reassess.
--- NOTE | 2018-01-05 01:10 | NUR ---
Pepcid reassess Patient verbalized relief from heartburn.
--- NOTE | 2018-01-05 04:00 | NUR ---
CIWA=9 Patient verbalized feeling depressed at times. Patient continues to have tremors and bouts of anxiety.
[2018-01-05] MEDS: LEVOTHYROXINE SODIUM 100 MCG TABLET PO SCH (06:58)
--- NOTE | 2018-01-05 07:22 | NUR ---
End of Shift Patient continues to be emotionally labile and has mood swings. Patient stated that she wakes up feeling depressed. However, per patient, she is feeling better every day. Patient also continues to c/o intermittent chills and hot flushes. PRN Pepcid was administered within the shift for heartburn. Latest CIWA=8, slept for 5 hours. Endorsed to AM shift nurse for continuity of care.
--- NOTE | 2018-01-05 07:30 | NUR ---
start of shift note: received pt from cook night nurse, pt is sleeping at this time, pts last ciwa is 8. pt is admitted to [facility] for benzo withdrawal/dependence. pt's last ciwa is 8. will continue to monitor pt for any changes and continue to meet pt's needs
[2018-01-05] MEDS ORDERED: DIAZEPAM 5 MG TABLET PO ONE (09:00)
[2018-01-05] MEDS: THIAMINE HCL 100 MG TABLET PO SCH (09:39)
[2018-01-05] MEDS: FOLIC ACID 1 MG TABLET PO SCH (09:39)
[2018-01-05] MEDS: LAMOTRIGINE 25 MG TABLET PO SCH (09:39)
[2018-01-05] MEDS: MULTIVITAMINS,THERAPEUTIC TABLET PO SCH (09:39)
[2018-01-05] MEDS: VALSARTAN 160 MG TABLET PO SCH (09:39)
[2018-01-05] MEDS: VENLAFAXINE XR 150 MG CAP.SR.24H PO SCH (09:39)
[2018-01-05] MEDS: DIAZEPAM 5 MG TABLET PO SCH ×3 (09:39→21:00)
[2018-01-05] MEDS: CLONIDINE HCL 0.1 MG TABLET PO PRN ×2 (12:15→20:50)
--- NOTE | 2018-01-05 12:15 | NUR ---
PRN clonidine: clonidine 0.1 mg was administered for b/p of 168/111 will re-assess effectiveness of medication
--- NOTE | 2018-01-05 12:53 | NUR ---
Therapist prompted client to attend group therapy sessions.
--- NOTE | 2018-01-05 13:15 | NUR ---
PRN re-assessment: pt's b/p is now 140/92, pt's b/p decreased and without s/s of headache or discomfort
--- NOTE | 2018-01-05 17:00 | NUR ---
PRN vistaril: pt refused valium at 1500, wanted to see how she felt without out, PRN vistaril was administered for agitation and anxiety, will re-assess effectiveness of medication.
[2018-01-05] MEDS: HYDROXYZINE PAMOATE 25 MG CAPSULE PO PRN (17:03)
--- NOTE | 2018-01-05 18:00 | NUR ---
PRN re-assessment: pt verbalized vistaril was effective, pt verbalized she feels like anxious and agitated.
--- NOTE | 2018-01-05 19:30 | NUR ---
Start of shift Patient is a 57 year old female admitted on 12/31/2017, patient is here at [facility] for medically supervised Benzo withdrawal. Patient is on a 5 day Valium taper. Patients last CIWA was 8. Patient is on Fall and Seizure precautions. Patients blood pressure runs high, per endorsement doctor went ahead and put an order for hydralazine. Patient also skipped 1500 Valium taper and more than likely will refuse the night dose per day shift. Upon rounds patient was noted in room resting in bed, reviewed plan of care with patient and she verbalized understanding. Patient is breathing even and unlabored, no s/s of distress were noted. Safety measures in place, side rails up x2, bed locked in low position, and call light within reach. Will continue to monitor.
--- NOTE | 2018-01-05 19:36 | NUR ---
end of shift note: [facility]. pt's last ciwa is 8. pt has improved coping skills. pt still is agitated once in awhile. endorsed to assembler 1st shift nurse to administer PRN medications for increased B/P.pt is tolerating valium taper well.
--- NOTE | 2018-01-05 20:00 | NUR ---
CIWA Assessment Patient is presenting with the following s/s of withdrawal: tremors, anxiety and agitation. Patients CIWA is 10. Breathing is even and unlabored, no s/s of distress. Safety measures in place, will continue to monitor.
[2018-01-05] MEDS: IBUPROFEN 600 MG TABLET PO PRN (20:49)
--- NOTE | 2018-01-05 20:50 | NUR ---
PRN Motrin and Clonidine Patient was presenting with a headache and anxiety with a high blood pressure of 146/97. Administered PRN Motrin and Clonidine. Patient tolerated medication well. Safety measures in place will continue to monitor.
[2018-01-05] MEDS: PSYLLIUM SEED PACKET PO SCH (21:00)
--- NOTE | 2018-01-05 21:50 | NUR ---
PRN Motrin and Clonidine Reassessment Patient is lying in bed and she states she feels much better, medication was noted to be effective. Breathing is even and unlabored. Safety measures in place, will continue to monitor.
[2018-01-05] MEDS: [UNRECOGNIZED DRUG - OTHER] PO SCH (23:38)
[2018-01-05] MEDS: PROGESTERONE 100 MG PO SCH (23:38)
[2018-01-05] MEDS: QUETIAPINE FUMARATE 25 MG TABLET PO SCH (23:38)
--- NOTE | 2018-01-05 23:38 | NUR ---
Late medication administration/ Valium refusal Patient stated she wanted medication to be administered late at night when she was ready for bed. Patient decline Valium medication because she felt like she didnt need it. Medication education was given verbally. Safety measures in place and will continue to monitor.
[2018-01-06] VITALS: BP 142/88
--- NOTE | 2018-01-06 | NUR ---
CIWA Deferred Patient was noted in bed resting with eyes closed, breathing is even and unlabored. Per protocol CIWA is to be assessed while awake. Safety measures in place, will continue to monitor.
[2018-01-06 04:00] VITALS: BP 136/82
[2018-01-06] MEDS: LEVOTHYROXINE SODIUM 100 MCG TABLET PO SCH (07:09)
--- NOTE | 2018-01-06 07:18 | NUR ---
End of shift Patient is a 57 year old female admitted on 12/31/2017, patient is here at [facility] for medically supervised Benzo withdrawal. Patient is on a 5 day Valium taper. Patients last CIWA was 10. Patient is on Fall and Seizure precautions. Patient had PRN Motrin, clonidine, and Pepcid. Patient slept for 5 hours and had a total intake of 1,855ml. Patient voided x3 and had no bowel movements during this shift. Safety measures in place, side rails up x2, bed locked in low position, and call light within reach. Will endorse to day shift.
[2018-01-06 08:00] VITALS: BP 128/60
--- NOTE | 2018-01-06 08:00 | NUR ---
START OF SHIFT CIWA ASSESSMENT Pt 57 y/o female admitted for etoh withdrawal. Pt received in room on bed with eyes closed resting, but easily arousable to name. Pt alert and oriented to name, place, and time. Perrla. Skin warm and moist touch. Respirations even and unlabored. Appears disheveled. Clothes scattered throughout the room. Encouraged to maintain hygiene. Anxious and restless. Pressured speech. Easily irritable. Pacing. Bilateral hand tremors noted. Complaints of generalized discomfort. Ciwa=10 @ 0800. It was reported that pt slept for 5 hours last night. Last ciwa=10 @1999. Pt is on a modified Phenobarbital taper and is on day 6. Bed on lowest position with side rails x 2 up for safety. Call light within reach. Addendum: 01/07/18 at 0906 by VERÓNICA AGUAYO RN correction Pt is on a modified valium taper and is on day 7.
[2018-01-06] MEDS: LAMOTRIGINE 25 MG TABLET PO SCH (08:36)
[2018-01-06] MEDS: THIAMINE HCL 100 MG TABLET PO SCH (08:36)
[2018-01-06] MEDS: MULTIVITAMINS,THERAPEUTIC TABLET PO SCH (08:36)
[2018-01-06] MEDS: FOLIC ACID 1 MG TABLET PO SCH (08:36)
[2018-01-06] MEDS: VENLAFAXINE XR 150 MG CAP.SR.24H PO SCH (08:36)
[2018-01-06] MEDS: VALSARTAN 160 MG TABLET PO SCH (08:37)
[2018-01-06] MEDS ORDERED: DIAZEPAM 5 MG TABLET PO SCH (09:00)
[2018-01-06 12:00] VITALS: BP 152/102
--- NOTE | 2018-01-06 12:00 | NUR ---
CIWA ASSESSMENT ciwa=10. Bilateral hand tremors noted. Anxious and restless. Pressured speech noted. Complaints of generalized discomfort.
[2018-01-06] MEDS: hydrALAZINE HCL 10 MG TABLET PO PRN ×2 (12:52→20:20)
--- NOTE | 2018-01-06 12:52 | NUR ---
PRN HYDRALAZINE mg=601/102. Hydralazine po prn per MD order given.
[2018-01-06] MEDS: DIAZEPAM 5 MG TABLET PO SCH ×2 (13:01→22:40)
--- NOTE | 2018-01-06 13:52 | NUR ---
PRN HYDRALAZINE ab=331/92
[2018-01-06 16:00] VITALS: BP 147/93
--- NOTE | 2018-01-06 16:00 | NUR ---
CIWA ASSESSMENT ciwa=10. Anxious and restless. Pressured speech. Bilateral hand tremors. Pacing. Irritable.
--- NOTE | 2018-01-06 18:23 | NUR ---
END OF SHIFT Pt 57 y/o female admitted for etoh withdrawal. Pt alert and oriented to name, place, and time. Perrla. Skin warm and moist touch. Respirations even and unlabored. Appears disheveled. Empty drink bottles and clothes scattered throughout the room. Encouraged to maintain hygiene. Anxious and restless. Pressured speech. Hyperverbal. Irritable. Bilateral hand tremors noted. Complaints of generalized discomfort. Isolative to room with minimal peer interaction. Attended group activity. Medication compliant. Last ciwa=10 @1600. Pt is on a modified valium taper and is on day 6. Bed on lowest position with side rails x 2 up for safety. Call light within reach. Addendum: 01/07/18 at 0906 by VERÓNICA AGUAYO RN correction Pt is on a modified valium taper and is on day 7.
--- NOTE | 2018-01-06 19:30 | NUR ---
Start of shift Patient is a 57 year old female admitted on 12/31/2017, patient is here at [facility] for medically supervised Benzo withdrawal. Patient is on a 5 day Valium taper. Patients last CIWA was 10. Patient is on Fall and Seizure precautions. Per endorsement patient had PRN Hydralazine for elevated blood pressure. Upon rounds patient was noted in room resting in bed, reviewed plan of care with patient and she verbalized understanding. Patient is breathing even and unlabored, no s/s of distress were noted. Safety measures in place, side rails up x2, bed locked in low position, and call light within reach. Will continue to monitor.
[2018-01-06 20:00] VITALS: BP 157/103
--- NOTE | 2018-01-06 20:00 | NUR ---
CIWA Assessments Patient is presenting with s/s of withdrawal as follow: tremors, anxiety and agitation. Patients CIWA is 7. Breathing is even and unlabored and no s/s of distress. Safety measures in please, bed lock in low position, side rails up x2, and call light within reach. Will continue to monitor.
--- NOTE | 2018-01-06 20:20 | NUR ---
PRN Hydralazine Patient is presenting with high blood pressure 157/103. Administered PRN Hydralazine and patient tolerated well. Safety measures in place, will continue to monitor.
[2018-01-06] MEDS: QUETIAPINE FUMARATE 25 MG TABLET PO SCH (21:00)
--- NOTE | 2018-01-06 21:00 | NUR ---
Refused Seroquel 25mg Patient had Seroquel schedule for 2100 and she refused it, patient stated she feels like Seroquel makes her over sleep along with Valium. Medication was not administered, will continue to monitor patient. Safety measures in place.
[2018-01-06] MEDS: [UNRECOGNIZED DRUG - OTHER] PO SCH (21:15)
[2018-01-06] MEDS: PROGESTERONE 100 MG PO SCH (21:15)
[2018-01-06] MEDS: PSYLLIUM SEED PACKET PO SCH (21:19)
--- NOTE | 2018-01-06 21:20 | NUR ---
PRN Hydralazine Reassessment Patients blood pressures is 137/94. Medication was noted to help bring down blood pressure. Breathing is even and unlabored. Safety measures in place, will continue to monitor.
[2018-01-06] MEDS: HYDROXYZINE PAMOATE 25 MG CAPSULE PO PRN (22:39)
[2018-01-06] MEDS: FAMOTIDINE 20 MG TABLET PO PRN (22:40)
--- NOTE | 2018-01-06 22:40 | NUR ---
PRN Tylenol, Vistaril and Pepcid Patient is presenting with a headache, anxiety and heartburns. Administered PRN Tylenol, Vistaril and Pepcid. Patient tolerated medication well and will continue to monitor. Safety measures in place, call light within reach.
--- NOTE | 2018-01-06 23:40 | NUR ---
Reassessment: PRN Tylenol, Vistaril and Pepcid Patient was noted in bed resting with eyes closed, breathing was even and unlabored. No signs or symptoms of distress. Medication was noted to be effective. Safety measures in place, will continue to monitor.
[2018-01-07] VITALS: BP 136/97
[2018-01-07 04:00] VITALS: BP 132/96
[2018-01-07] MEDS: LEVOTHYROXINE SODIUM 100 MCG TABLET PO SCH (07:11)
--- NOTE | 2018-01-07 07:16 | NUR ---
End of shift Patient is a 57 year old female admitted on 12/31/2017, patient is here at [facility] for medically supervised Benzo withdrawal. Patient is on a 5 day Valium taper. Patients last CIWA was 7. Patient is on Fall and Seizure precautions. Patient had PRN Hydralazine, Tylenol, Vistaril, and Pepcid during this shift. Patient reported some redness in the right hand, no edema is present, hand is warm to touch, and blanches with pressure and no pain is present. Patient denies any itching on right hand and will endorse to day shift nurse to make MD aware. Charge nurse was notified, patient is breathing and unlabored. Patient denies any s/s of distress. Patient slept for 5 hours and had a total intake of 700ml. Patient voided x5 and had no bowel movements during this shift. Safety measures in place, side rails up x2, bed locked in low position, and call light within reach. Will endorse to day shift.
[2018-01-07 08:00] VITALS: BP 120/60
--- NOTE | 2018-01-07 08:00 | NUR ---
START OF SHIFT CIWA ASSESSMENT Pt 57 y/o female admitted for benzo withdrawal. Pt received in room on bed with eyes closed resting, but easily arousable to name. Pt alert and oriented to name, place,and time. Perrla. Skin warm and moist to touch. Respirations even and unlabored. Appears disheveled and unkempt. Hair uncombed. Clothes, food, and empty drink bottles scattered throughout the room. Encouraged to maintain hygiene. Anxious and restless. Pressured speech. Complaints of generalized discomfort. Bilateral hand tremors noted. ciwa=10 @0800. It was reported that pt slept for 5 hours last night. Pt is on a modified valium taper and is on day 8. Last ciwa=7 @ 0000. Bed on lowest position with side rails x2 up for safety. Call light within reach.
[2018-01-07] MEDS: PATIENT MAY USE OWN MED- MD OK TOP SCH (08:23)
[2018-01-07] MEDS: VALSARTAN 160 MG TABLET PO SCH (08:24)
[2018-01-07] MEDS: MULTIVITAMINS,THERAPEUTIC TABLET PO SCH (08:24)
[2018-01-07] MEDS: THIAMINE HCL 100 MG TABLET PO SCH (08:24)
[2018-01-07] MEDS: VENLAFAXINE XR 150 MG CAP.SR.24H PO SCH (08:24)
[2018-01-07] MEDS: LAMOTRIGINE 25 MG TABLET PO SCH (08:24)
[2018-01-07] MEDS: FOLIC ACID 1 MG TABLET PO SCH (08:28)
[2018-01-07] MEDS ORDERED: DIAZEPAM 5 MG TABLET PO SCH (09:00)
[2018-01-07 12:00] VITALS: BP 166/100
--- NOTE | 2018-01-07 12:00 | NUR ---
CIWA ASSESSMENT ciwa=10. Bilateral hand tremors noted. Anxious and restless. Pressured speech noted. Complaints of generalized discomfort.
[2018-01-07] MEDS: hydrALAZINE HCL 10 MG TABLET PO PRN (12:14)
[2018-01-07] MEDS: DIAZEPAM 5 MG TABLET PO SCH ×2 (12:14→21:54)
--- NOTE | 2018-01-07 12:16 | NUR ---
PRN HYDRALAZINE ZT=381/102. Hydralazine po prn per MD order given and tolerated well.
--- NOTE | 2018-01-07 13:16 | NUR ---
PRN HYDRALAZINE OA=986/88
[2018-01-07 16:00] VITALS: BP 163/97
--- NOTE | 2018-01-07 16:00 | NUR ---
CIWA ASSESSMENT ciwa=10. Anxious and restless. Pressured speech noted. Irritable. Pacing. Bilateral hand tremors noted. Complaints of generalize discomfort.
[2018-01-07] MEDS: CLONIDINE HCL 0.1 MG TABLET PO PRN (17:34)
--- NOTE | 2018-01-07 17:41 | NUR ---
PRN CATAPRES MF=533/93. Catapres po prn per MD order given and tolerated well.
--- NOTE | 2018-01-07 18:36 | NUR ---
END OF SHIFT Pt 57 y/o female admitted for etoh withdrawal. Pt alert and oriented to name, place, and time. Perrla. Skin warm and moist touch. Respirations even and unlabored. Appears disheveled. Food,empty drink bottles, and clothes scattered throughout the room. Encouraged to maintain hygiene. Anxious and restless. Pressured speech. Irritable. Bilateral hand tremors noted. Complaints of generalized discomfort. Isolative to room with minimal peer interaction. Attended group activity. Medication compliant. Last ciwa=10 @1600. Pt is on a modified valium taper and is on day 8. Bed on lowest position with side rails x 2 up for safety. Call light within reach.
--- NOTE | 2018-01-07 19:30 | NUR ---
Start of Shift Received 57 year old female patient admitted 12/31/17 to [facility] for medically supervised withdrawal from Benzodiazepines. Pt is currently on a modified Valium Taper, which she is tolerating well. Pt was given PRN Clonidine and Hydralazine on day shift. Last CIWA 10 @ 1600. Pt up ad eileen, participating in activities and smokes. Pt is anxious, agitated, fidgety, noticeable tremors, mild sweats. BP down 153/95 from previous reported (166/100). Will continue to monitor.
[2018-01-07 20:00] VITALS: BP 153/95
--- NOTE | 2018-01-07 20:00 | NUR ---
CIWA 8 Pt is anxious, agitated, fidgety, noticeable tremors, mild sweats
[2018-01-07] MEDS: QUETIAPINE FUMARATE 25 MG TABLET PO SCH (21:00)
[2018-01-07] MEDS: PROGESTERONE 100 MG PO SCH (21:54)
[2018-01-07] MEDS: [UNRECOGNIZED DRUG - OTHER] PO SCH (21:54)
[2018-01-07] MEDS: FAMOTIDINE 20 MG TABLET PO PRN (21:55)
[2018-01-07] MEDS: PSYLLIUM SEED PACKET PO SCH (21:55)
--- NOTE | 2018-01-07 21:55 | NUR ---
PRN Pepcid Pt complains of heartburn. PRN Pepcid given per order. Will monitor effect.
--- NOTE | 2018-01-07 22:47 | NUR ---
Reassess AMITA Mary Pt denies heartburn at this time.
--- NOTE | 2018-01-08 | NUR ---
CIWA deferred/ Vitals refused Pt resting with eyes closed. Respirations are even and unlabored. CIWA deferred and pt refused vitals. Continue to monitor.
--- NOTE | 2018-01-08 04:00 | NUR ---
CIWA deferred/ Vitals refused Pt resting with eyes closed. Respirations are even and unlabored. CIWA deferred and pt refused vitals. Continue to monitor.
[2018-01-08] MEDS: LEVOTHYROXINE SODIUM 100 MCG TABLET PO SCH (06:34)
--- NOTE | 2018-01-08 06:48 | NUR ---
End of Shift Endorsing 57 year old female patient admitted 12/31/17 to [facility] for medically supervised withdrawal from Benzodiazepines. Pt is currently on a modified Valium Taper, which she is tolerating well. Pt was given PRN Pepcid on night supervisor. Last CIWA 8 @ 1999. Pt resting in bed with eyes closed. Respirations are even and unlabored. Bed low, side rails up x 2, and call booth in reach. PO intake 1460 ml, voided x 5, BM x 0, and slept 6 hours.
[2018-01-08 08:00] VITALS: BP 114/60
--- NOTE | 2018-01-08 08:05 | NUR ---
START OF SHIFT: Received Pt A/O X 4. She presents disheveled with anxious mood and congruent affect. Fine tremors noted to bilateral hands. She reports she slept restless last night and feels fatigued this morning. CIWA 9. Modified Valium taper in progress to manage s/s of w/d.Encouraged group attendance to improve coping skills and prevent relapse.Will continue to monitor and offer support.
[2018-01-08] MEDS: VALSARTAN 160 MG TABLET PO SCH (08:59)
[2018-01-08] MEDS ORDERED: DIAZEPAM 5 MG TABLET PO SCH ×2 (09:00→12:00)
[2018-01-08] MEDS: VENLAFAXINE XR 150 MG CAP.SR.24H PO SCH (09:00)
[2018-01-08] MEDS: MULTIVITAMINS,THERAPEUTIC TABLET PO SCH (09:00)
[2018-01-08] MEDS: THIAMINE HCL 100 MG TABLET PO SCH (09:00)
[2018-01-08] MEDS: FOLIC ACID 1 MG TABLET PO SCH (09:00)
[2018-01-08] MEDS: LAMOTRIGINE 25 MG TABLET PO SCH (09:00)
[2018-01-08] MEDS ORDERED: EUCA170O5 TP (09:24)
[2018-01-08 12:00] VITALS: BP 141/90
--- NOTE | 2018-01-08 12:20 | NUR ---
CIWA 8 Fine tremors noted to hands. She reports anxiety and restlessness.
[2018-01-08] MEDS ORDERED: VICKS VAPORUB TOP PRN (12:45)
[2018-01-08 16:00] VITALS: BP 164/101
[2018-01-08] MEDS: CLONIDINE HCL 0.1 MG TABLET PO PRN (17:05)
--- NOTE | 2018-01-08 19:24 | NUR ---
END OF SHIFT: Pt continues on Valium taper to manage s/s of w/d which include anxiety and restlessness. Last CIWA 8. She interacted with peers and attended groups. She was compliant with increased fluids. Will pass shift report to oncoming night nurse.
--- NOTE | 2018-01-08 19:51 | NUR ---
START IOF SHIFT NOTE Rcvd report from outgoing nurse. Pt is a 57 y/o female A/O to person, place, time, and purpose. Pt was admitted for medically supervised withdrawal from Benzodiazepines. Pt completed a 5 day Valium taper. Pt is being discharged on 01/10/18. Pt has been presenting w/ anxiety, fine tremors, and flushing. Pt rcvd no PRN medications during previous shift. Last CIWA 8 @ 1600 Call light is within reach. Pt will continue to be monitored and needs met.
[2018-01-08 20:05] VITALS: BP 121/85
--- NOTE | 2018-01-08 20:05 | NUR ---
CIWA ASSESSMENT CIWA 8. Pt has been presenting w/ anxiety, fine tremors, and flushing. V/S: T:97.6, P:96, RR:18, SPO2:98, BP:121/65.
[2018-01-08] MEDS: PSYLLIUM SEED PACKET PO SCH (20:06)
[2018-01-08] MEDS: QUETIAPINE FUMARATE 25 MG TABLET PO SCH (22:19)
[2018-01-08] MEDS: PROGESTERONE 100 MG PO SCH (22:19)
[2018-01-08] MEDS: [UNRECOGNIZED DRUG - OTHER] PO SCH (22:19)
--- NOTE | 2018-01-09 | NUR ---
PRN PEPCID ADMINISTRATION Pepcid 20mg given for heartburn. Pt c/o heartburn/indigestion. Will reassess pt in 1 hr.
[2018-01-09 00:05] VITALS: BP 117/81
--- NOTE | 2018-01-09 00:06 | NUR ---
CIWA ASSESSMENT CIWA 8. Pt has been presenting w/ anxiety, fine tremors, and flushing. V/S: T:97.8, P:91, RR:16, SPO2:99, BP:117/81.
--- NOTE | 2018-01-09 01:00 | NUR ---
PRN PEPCID REASSESSMENT Pt is in bed w/ her eyes closed. Pt's respirations are unlabored and even.
--- NOTE | 2018-01-09 04:08 | NUR ---
CIWA DEFERRED. V/S REFUSED Pt is in bed w/ her eyes closed. Pt's respirations are unlabored and even.
[2018-01-09] MEDS: LEVOTHYROXINE SODIUM 100 MCG TABLET PO SCH (07:08)
--- NOTE | 2018-01-09 07:19 | NUR ---
END OF SHIFT NOTE Endorsed pt to oncoming nurse. Pt is a 57 y/o female A/O to person, place, time, and purpose. Pt was admitted for medically supervised withdrawal from Benzodiazepines. Pt completed a 5 day Valium taper. Pt is being discharged on 01/10/18. Pt continues presenting w/ anxiety, fine tremors, and flushing. Pt denies any S/I or H/I. PRN Pepcid given for heartburn, noted effective. Pts fluid intake was 600ml and she slept for 7hrs. Last CIWA 8 @ 2000 Call light is within reach.
[2018-01-09 08:00] VITALS: BP 120/57
--- NOTE | 2018-01-09 08:20 | NUR ---
START OF SHIFT: Received Pt A/O X 4. She presents with anxious mood and congruent affect. Fine tremors noted to bilateral hands. She reports she feels some anxiety and fear about the future. Offered support. CIWA 11. Modified Valium taper in progress to manage s/s of w/d.PRN Vicks Vapo rub given for nasal congestion that she says are due to allergies. Encouraged group attendance to improve coping skills and prevent relapse.Will continue to monitor and offer support.
[2018-01-09] MEDS ORDERED: DIAZEPAM 5 MG TABLET PO SCH ×2 (09:00→12:00)
[2018-01-09] MEDS: VALSARTAN 160 MG TABLET PO SCH (09:22)
[2018-01-09] MEDS: VENLAFAXINE XR 150 MG CAP.SR.24H PO SCH (09:23)
[2018-01-09] MEDS: LAMOTRIGINE 25 MG TABLET PO SCH (09:24)
[2018-01-09] MEDS: THIAMINE HCL 100 MG TABLET PO SCH (09:24)
[2018-01-09] MEDS: FOLIC ACID 1 MG TABLET PO SCH (09:24)
[2018-01-09] MEDS: MULTIVITAMINS,THERAPEUTIC TABLET PO SCH (09:25)
[2018-01-09 12:00] VITALS: BP 154/95
[2018-01-09] MEDS: CLONIDINE HCL 0.1 MG TABLET PO PRN (12:15)
--- NOTE | 2018-01-09 12:30 | NUR ---
CIWA 6 She reports anxiety and restlessness. Last dose of Valium administered as ordered. PRN Clonidine given for BP 154/95 P 87 Will monitor effectiveness.
[2018-01-09] MEDS ORDERED: VENL150C2 PO (12:42)
[2018-01-09] MEDS ORDERED: PROG100C15 PO (12:42)
[2018-01-09] MEDS ORDERED: LEVO100T10 PO (12:42)
[2018-01-09] MEDS ORDERED: FAMO20TA8 PO (12:42)
[2018-01-09] MEDS ORDERED: LAMO25TA5 PO (12:42)
[2018-01-09] MEDS ORDERED: VALS160T2 PO (12:42)
[2018-01-09] MEDS ORDERED: QUET25TA PO (12:42)
[2018-01-09] MEDS ORDERED: CLON0.1T14 PO (12:42)
[2018-01-09] MEDS ORDERED: HYDR-3895 PO (12:42)
[2018-01-09] MEDS ORDERED: Psyllium Seed PO (12:43)
[2018-01-09 13:00] VITALS: BP 126/78
--- NOTE | 2018-01-09 13:40 | NUR ---
BP 126/78 P 90 Clonidine PRN effective.
--- NOTE | 2018-01-09 14:58 | NUR ---
Therapist prompted client to attend group therapy sessions.
[2018-01-09 16:00] VITALS: BP 150/89
--- NOTE | 2018-01-09 18:57 | NUR ---
END OF SHIFT: Pt completed Valium taper today. Last CIWA 7. She interacted with peers and attended groups. She is scheduled for discharge in am tomorrow to [facility] and expressed enthusiasm toward recovery. Will pass shift report to oncoming night nurse.
--- NOTE | 2018-01-09 19:25 | NUR ---
START OF SHIFT Patient is a 57-year-old female admitted on 12/31/17 for benzodiazepine withdrawal. Patient has completed her second Valium taper, tolerated well, scheduled for discharge tomorrow. Patients last CIWA was 7 per endorsement. Patient received PRN Vicks Rub earlier today, noted to be effective. Upon assessment, patient reports feeling anxious about leaving tomorrow and states. Maliha grown quite attached to everyone here. Patient verbalizes concern about packing her belongings and has many questions about the packing process as well as discharge process. Patient is also worried about sleeping tonight. Patient states, Please wake me up tomorrow morning before you leave so I can say goodbye. Patient continues on fall and seizure precautions with no history of seizure activity. Safety measures in place, side rails up x2, bed locked in low position, call light within reach. Will continue to monitor.
[2018-01-09 20:00] VITALS: BP 156/92
--- NOTE | 2018-01-09 20:00 | NUR ---
CIWA 7 Patient is anxious, diaphoretic, restless and preoccupied with packing her belongings. Patient has a CIWA of 7. SN to administer medications as ordered. Safety measures in place. Will continue to monitor.
[2018-01-09] MEDS: PSYLLIUM SEED PACKET PO SCH (20:01)
[2018-01-09] MEDS: [UNRECOGNIZED DRUG - OTHER] PO SCH (22:12)
[2018-01-09] MEDS: FAMOTIDINE 20 MG TABLET PO PRN ×2 (22:12)
[2018-01-09] MEDS: PROGESTERONE 100 MG PO SCH (22:12)
[2018-01-09] MEDS: QUETIAPINE FUMARATE 25 MG TABLET PO SCH (22:12)
--- NOTE | 2018-01-09 22:12 | NUR ---
PRN PEPCID Patient reports heartburn in the evenings stating, "It feels like a fire in my throat if I don't take the Pepcid." PRN Pepcid given PO. Safety measures in place, call light within reach. Will monitor for effectiveness.
--- NOTE | 2018-01-09 23:12 | NUR ---
PRN PEPCID REASSESSMENT Patient reports that the Pepcid has prevented any symptoms of heartburn. PRN Pepcid noted to be effective. Safety measures in place, side rails up x2, bed locked in low position, call light within reach. Will continue to monitor.
[2018-01-10] VITALS: BP 146/88
--- NOTE | 2018-01-10 | NUR ---
CIWA 7 Patient is anxious and restless, packing her belongings "to make me tired so I can sleep tonight." Patient is slightly diaphoretic and fidgety. Current CIWA is 7. Will continue to monitor.
--- NOTE | 2018-01-10 04:00 | NUR ---
VITALS REFUSED, CIWA DEFERRED 4am vitals refused, CIWA deferred due to patient sleeping. Respirations even and unlabored, 14/min. Safety measures in place, side rails up x2, bed locked in low position, call light within reach. Will continue to monitor.
[2018-01-10] MEDS: LEVOTHYROXINE SODIUM 100 MCG TABLET PO SCH (07:18)
--- NOTE | 2018-01-10 07:28 | NUR ---
END OF SHIFT Patient is a 57-year-old female admitted on 12/31/17 for benzodiazepine withdrawal. Patient has completed her second Valium taper, tolerated well, scheduled for discharge this morning. Patients last CIWA was 7. Patient received PRN Pepcid which was noted to be effective. Patient slept for 6 hours, total intake of 1,351mL, void x5, stool x2. Patient is on fall and seizure precautions with no history of seizure activity. Safety measures in place, side rails up x2, bed locked in low position, call light within reach. Will endorse to day shift.
--- NOTE | 2018-01-10 08:00 | NUR ---
START OF SHIFT Pt is a 57 yr old female, AA&Ox4. pt was admitted on 12/31/17 for Benzo withdrawal and has completed a Valium taper as ordered. Received report from shift lab technician nurse. Pt received Pepcid PRN during the night. Medication was effective. Last CIWA score was 7 and pt slept for 6 hrs. Pt is currently c/o anxiety due to waking up after having vivid dreams. Pt states she is able to cope with anxiety level. Facial redness is noted. Skin is intact, warm and moist to touch. Pt is to be discharged to day to [facility] treatment. Safety precautions observed. Call light is within reach. Will continue to monitor.
[2018-01-10 08:08] VITALS: BP 149/100
[2018-01-10] MEDS: PATIENT MAY USE OWN MED- MD OK TOP SCH (09:00)
[2018-01-10 09:04] VITALS: BP 149/100
[2018-01-10] MEDS: VALSARTAN 160 MG TABLET PO SCH (09:04)
[2018-01-10] MEDS: VENLAFAXINE XR 150 MG CAP.SR.24H PO SCH (09:04)
[2018-01-10] MEDS: MULTIVITAMINS,THERAPEUTIC TABLET PO SCH (09:04)
[2018-01-10] MEDS: FOLIC ACID 1 MG TABLET PO SCH (09:05)
[2018-01-10] MEDS: LAMOTRIGINE 25 MG TABLET PO SCH (09:05)
[2018-01-10] MEDS: THIAMINE HCL 100 MG TABLET PO SCH (09:05)
--- NOTE | 2018-01-10 10:20 | NUR ---
DISCHARGE NOTE Pt is a 57 yr old female, AA&Ox4. pt was admitted on 12/31/17 for Benzo withdrawal and completed a modified Valium taper as ordered. Pt has been cooperative with medication regimen and plan of care. Pt was observed attending group therapy. Pt was c/o anxiety prior to discharged but was able to cope with anxiety level. Pt was educated on discharged summary and prescriptions. Pt was able to verbalize understanding. Pt was discharged off the unit at 1012 in stable condition. Pt was discharged to [facility] treatment. Pt left with all belongings, valuables, and home medications.
== END 2018-01-10 10:10 | disposition other institution (70) | DRG 895 ==
LOC: SRC 11:45
PROVIDERS: ADMIT Family Medicine Addiction Medicine; ATTEND Family Medicine Addiction Medicine
PROC: HZ2ZZZZ Detoxification Services for Substance Abuse Treatment (ICD-10-PCS; principal; 2017-12-31)
PROC: HZ31ZZZ Individual Counseling for Substance Abuse Treatment, Behavioral (ICD-10-PCS; 2018-01-01)
PROC: HZ41ZZZ Group Counseling for Substance Abuse Treatment, Behavioral (ICD-10-PCS; 2018-01-02)
PROC: HZ59ZZZ Individual Psychotherapy for Substance Abuse Treatment, Supportive (ICD-10-PCS; 2018-01-04)
DX: F13.230 Sedative, hypnotic or anxiolytic dependence with withdrawal, uncomplicated (principal); F43.10 Post-traumatic stress disorder, unspecified; G47.00 Insomnia, unspecified; F41.1 Generalized anxiety disorder; Z88.1 Allergy status to other antibiotic agents; F17.210 Nicotine dependence, cigarettes, uncomplicated; Z90.49 Acquired absence of other specified parts of digestive tract; Z78.0 Asymptomatic menopausal state; E03.9 Hypothyroidism, unspecified; I10 Essential (primary) hypertension; F41.0 Panic disorder [episodic paroxysmal anxiety]; F31.9 Bipolar disorder, unspecified; Z79.899 Other long term (current) drug therapy; Z79.890 Hormone replacement therapy; E83.51 Hypocalcemia; E86.0 Dehydration; I95.9 Hypotension, unspecified
CPT/HCPCS: 36415; 70030-TC; 80307; 83735; 84443; 85025; 86592; 86705; 86803; 87340; 87806; A9150; G0480; J3411